=== PATIENT | female | born 1955 | race Caucasian/White ===

== ENCOUNTER 2017-02-25 16:54 | Inpatient (IN) ==
[2017-02-25] MEDS ORDERED: ZOFRAN IV ONE (17:01)
[2017-02-25] MEDS ORDERED: DILAUDID IV ONE ×2 (17:01→19:17)
--- NOTE | 2017-02-25 19:11 | Diag Imaging Result Document ---
PROCEDURE NAME: HEAD/C-SPINE W/O CONTRAST - 02/25/2017 CT OF THE CERVICAL SPINE: FINDINGS: There are hypertrophic changes at the disk spaces and facets, particularly at the C4-5 and C5-6 levels. No evidence of prevertebral soft tissue swelling, fracture or subluxation is present. There is some uncovertebral arthropathy with encroachment on the intervertebral foramina at the C4-5 and C6-7 levels bilaterally. IMPRESSION: Degenerative changes. No evidence of acute disease. CT OF THE BRAIN WITHOUT CONTRAST: FINDINGS: There are calcifications in the basilar and both internal carotid arteries. There is no evidence of mass effect, bleed, or abnormal extra-axial fluid collection. There are some lucencies present in the external capsule regions bilaterally. The visualized paranasal sinuses are clear. IMPRESSION: Chronic microvascular changes. No evidence of acute intracranial disease. [facility]
--- NOTE | 2017-02-25 19:14 | Diag Imaging Result Document ---
PROCEDURE NAME: THORAX/ABDOMEN/PELVIS - 02/25/2017 CT OF THE CHEST WITH INTRAVENOUS CONTRAST: FINDINGS: The aorta is normal in appearance. There are no abnormal fluid collections. There is minimal fibrosis or atelectasis in the lung bases posteriorly. There is no evidence of pneumothorax. There is a comminuted fracture of the right clavicle. This is incompletely imaged. There are fractures of the posterior 2nd and anterior 2nd ribs, the posterior 3rd rib, the anterolateral 4th rib, the 5th rib anterolaterally, the 6th and 7th ribs laterally on the right. IMPRESSION: Fractures of the 2nd through 7th ribs on the right. Bibasilar atelectasis. Fractured right clavicle. CT OF THE ABDOMEN WITH INTRAVENOUS CONTRAST: FINDINGS: The spleen is normal in appearance as is the pancreas and both adrenal glands. The liver is profoundly hypodense, indicating hepatic steatosis. There are a few areas of sparing near the gallbladder fossa. There is atherosclerotic calcification in the aorta which is otherwise unremarkable. The appendix is within normal limits. There is no evidence of bowel obstruction or free air. There is gas and stool in the colon. CT OF THE PELVIS WITH INTRAVENOUS CONTRAST: There is diverticulosis in the sigmoid colon without evidence of diverticulitis. There is no evidence of free fluid. The regional skeleton appears to be intact. Kidneys are without evidence of hydronephrosis or mass and there is no evidence of perinephric fluid collections. There are cortical cysts in the left kidney. IMPRESSION: No evidence of acute intra-abdominal disease. [facility]
[2017-02-25] MEDS ORDERED: NS 1,000 ML IV ONE (19:17)
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
[2017-02-25] MEDS ORDERED: NORCO-10 PO ONE (20:31)
[2017-02-25] MEDS ORDERED: HUMULIN R SUBQ ONE (20:31)
[2017-02-25] MEDS ORDERED: PRILOSEC PO PRN (20:41)
[2017-02-25] MEDS ORDERED: AMBIEN PO PRN (20:41)
[2017-02-25] MEDS: COLACE PO SCH (21:00)
[2017-02-25] MEDS: MOBIC PO SCH (21:00)
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
[2017-02-25] MEDS: DILAUDID IV PRN (22:11)
[2017-02-25] MEDS: CELEXA PO SCH (22:34)
[2017-02-26] MEDS: DILAUDID IV PRN ×6 (01:57→19:48)
--- NOTE | 2017-02-26 05:30 | EKG Report ---
Test Performed on : 02/25/2017 5:10:55 PM Test Reason : Blood Pressure : / mmHG Vent. Rate : 089 BPM Atrial Rate : 089 BPM P-R Int : 144 ms QRS Dur : 082 ms QT Int : 440 ms P-R-T Axes : 055 006 036 degrees QTc Int : 535 ms Normal sinus rhythm. Nonspecific T wave abnormality Abnormal ECG When compared with ECG of 24-SEP-2012 02:12, Nonspecific T wave abnormality, worse in Inferior leads Nonspecific T wave abnormality, worse in Anterolateral leads QT has lengthened Unconfirmed Result
[2017-02-26] MEDS: HYZAAR 50/12.5 MG PO SCH (07:59)
[2017-02-26] MEDS: LOVENOX SUBQ SCH (08:00)
[2017-02-26] MEDS: PLAVIX PO SCH (08:00)
[2017-02-26] MEDS: M.V.I.-12 10 ML, FOLIC ACID 1 MG, MAGNESIUM SULFATE 1 GM, THIAMINE 100 MG in NS 1,000 ML IV SCH (08:00)
[2017-02-26] MEDS: COLACE PO SCH ×3 (08:00→22:37)
--- NOTE | 2017-02-26 08:22 | Diag Imaging Result Document ---
PROCEDURE NAME: CHEST-PORTABLE - 02/26/2017 ERECT AP PORTABLE CHEST AT 0615 HOURS: FINDINGS: The inspiration is suboptimal compared to 10/09/2013. There is bilateral basilar atelectasis. IMPRESSION: Poor inspiration and atelectasis.
--- NOTE | 2017-02-26 08:27 | Diag Imaging Result Document ---
PROCEDURE NAME: TRAUMA SHOULDER RIGHT - 02/25/2017 RIGHT SHOULDER, 2 VIEWS: FINDINGS: There is an apparent fracture of the mid shaft of the clavicle. The glenohumeral joint is apparently intact. IMPRESSION: Clavicular fracture.
--- NOTE | 2017-02-26 13:07 | Diag Imaging Result Document ---
PROCEDURE NAME: CT THORAX W/O CONTRAST - 02/25/2017 CT OF THE CHEST WITHOUT CONTRAST: FINDINGS: This study was performed contemporaneous with the contrast CT of the chest. In addition to the previously reported rib fractures, the posteromedial 10th, 9th, and 7th ribs are fractured on the right. IMPRESSION: Multiple rib fractures on the right.
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
[2017-02-26] MEDS: PRAVACHOL PO SCH ×2 (19:49→22:37)
[2017-02-26] MEDS: CELEXA PO SCH ×2 (19:49→22:37)
[2017-02-26] MEDS: MOBIC PO SCH ×2 (19:49→22:37)
[2017-02-27] MEDS: DILAUDID IV PRN ×5 (01:31→22:41)
--- NOTE | 2017-02-27 09:24 | Diag Imaging Result Document ---
PROCEDURE NAME: CHEST-PORTABLE - 02/27/2017 PORTABLE CHEST: COMPARISON: 02/26/2017. FINDINGS: The lungs are well expanded. No pneumothoraces. There may be small effusions and basilar atelectasis. There is a fracture to the midright clavicle and to the posterior right third rib. IMPRESSION: Basilar atelectasis, but no pneumothorax.
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
[2017-02-27] MEDS: LOVENOX SUBQ SCH (11:51)
[2017-02-27] MEDS: COLACE PO SCH ×3 (11:51→22:00)
[2017-02-27] MEDS: PLAVIX PO SCH (11:51)
[2017-02-27] MEDS: HYZAAR 50/12.5 MG PO SCH (11:51)
[2017-02-27] MEDS: M.V.I.-12 10 ML, FOLIC ACID 1 MG, MAGNESIUM SULFATE 1 GM, THIAMINE 100 MG in NS 1,000 ML IV SCH (11:52)
[2017-02-27] MEDS: DUONEB (A & A) INH SCH ×4 (12:20→23:10)
[2017-02-27] MEDS: PRAVACHOL PO SCH ×2 (19:28→22:00)
[2017-02-27] MEDS: CELEXA PO SCH ×2 (19:28→22:00)
[2017-02-27] MEDS: MOBIC PO SCH ×2 (19:29→22:00)
[2017-02-28] MEDS: DILAUDID IV PRN ×4 (02:57→22:16)
[2017-02-28] MEDS: DUONEB (A & A) INH SCH ×6 (03:10→23:00)
[2017-02-28] MEDS: PLAVIX PO SCH (08:38)
[2017-02-28] MEDS: COLACE PO SCH ×2 (08:38→22:19)
[2017-02-28] MEDS: HYZAAR 50/12.5 MG PO SCH (08:38)
[2017-02-28] MEDS: LOVENOX SUBQ SCH (08:39)
[2017-02-28] MEDS: M.V.I.-12 10 ML, FOLIC ACID 1 MG, MAGNESIUM SULFATE 1 GM, THIAMINE 100 MG in NS 1,000 ML IV SCH (10:58)
[2017-02-28] MEDS: LIDODERM TOP SCH (10:58)
[2017-02-28] MEDS: ROBAXIN 500 MG in NS 50 ML IV SCH ×3 (10:58→22:19)
[2017-02-28] MEDS: NORCO-7.5 PO PRN ×2 (12:43→23:26)
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
[2017-02-28] MEDS: MOBIC PO SCH (22:19)
[2017-02-28] MEDS: PRAVACHOL PO SCH (22:19)
[2017-02-28] MEDS: CELEXA PO SCH (22:19)
[2017-03-01] MEDS: DUONEB (A & A) INH SCH ×6 (03:30→22:47)
[2017-03-01] MEDS: ROBAXIN 500 MG in NS 50 ML IV SCH ×4 (03:46→21:07)
[2017-03-01] MEDS: DILAUDID IV PRN ×3 (05:49→16:29)
[2017-03-01] MEDS: HYZAAR 50/12.5 MG PO SCH (09:26)
[2017-03-01] MEDS: COLACE PO SCH ×2 (09:26→21:08)
[2017-03-01] MEDS: PLAVIX PO SCH (09:26)
[2017-03-01] MEDS: LIDODERM TOP SCH (09:27)
[2017-03-01] MEDS: LOVENOX SUBQ SCH (09:27)
[2017-03-01] MEDS: M.V.I.-12 10 ML, FOLIC ACID 1 MG, MAGNESIUM SULFATE 1 GM, THIAMINE 100 MG in NS 1,000 ML IV SCH (09:27)
[2017-03-01] MEDS: NORCO-7.5 PO PRN ×2 (13:22→21:08)
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
[2017-03-01] MEDS: CELEXA PO SCH (21:08)
[2017-03-01] MEDS: PRAVACHOL PO SCH (21:08)
[2017-03-01] MEDS: MOBIC PO SCH (21:08)
[2017-03-02] MEDS: DILAUDID IV PRN ×4 (00:29→13:05)
[2017-03-02] MEDS: NORCO-7.5 PO PRN ×2 (03:15→17:01)
[2017-03-02] MEDS: ROBAXIN 500 MG in NS 50 ML IV SCH ×3 (03:15→15:45)
[2017-03-02] MEDS: DUONEB (A & A) INH SCH ×4 (06:10→15:33)
[2017-03-02] MEDS: COLACE PO SCH (08:48)
[2017-03-02] MEDS: PLAVIX PO SCH (08:48)
[2017-03-02] MEDS: HYZAAR 50/12.5 MG PO SCH (08:48)
[2017-03-02] MEDS: LOVENOX SUBQ SCH (08:49)
[2017-03-02] MEDS: LIDODERM TOP SCH (08:49)
[2017-03-02] MEDS: M.V.I.-12 10 ML, FOLIC ACID 1 MG, MAGNESIUM SULFATE 1 GM, THIAMINE 100 MG in NS 1,000 ML IV SCH (08:50)
[2017-03-02 15:54] VITALS: BP 138/65
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
[2017-03-04] MEDS ORDERED: NON-FORMULARY MED (Dulaglutide [Trulicity] 1.5 MG) SUBQ SCH (09:00)
== END 2017-03-02 17:31 | disposition home or self-care (01) ==
LOC: SUPCPDRO → ED 16:54 → 4N 21:23
PROVIDERS: ADMIT Surgery; ATTEND Surgery